=== PATIENT | male | born 1995 | race Caucasian/White ===

== ENCOUNTER 2017-09-24 10:38 | Emergency (ER) | payer BC, OTHER ==
[~2017-09-24] VITALS: Ht 182.9 cm; Wt 60.0 kg
[2017-09-24] MEDS ORDERED: NO HOME MEDS (11:40)
[2017-09-24 12:30] VITALS: BP 120/53
== END 2017-09-24 13:50 | disposition home or self-care (01) ==
LOC: ER 10:39
DX: R04.2 Hemoptysis (principal)
CPT/HCPCS: 71046; 99284